=== PATIENT | female | born 1935 | race Caucasian/White ===

== ENCOUNTER → 2016-06-01 | Outpatient (CLI) | payer MEDICARE ==
--- NOTE | 2016-06-01 12:48 | BD ---
EXAMINATION TYPE: MG DEXA axial skeleton. DATE OF EXAM: 06/01/2016 10:39 AM COMPARISON: Previous exam 14 May 2014 CLINICAL HISTORY: post menopausal Height: 5'3 05/31 Weight: 154 FRAX RISK QUESTIONS: Alcohol (3 or more units per day): no Family History (Parent hip fracture): no Glucocorticoids (More than 3mos): no (Ex: prednisone, prednisolone, methylprednisolone, dexamethasone, and hydrocortisone). History of Fracture in Adulthood: no Secondary Osteoporosis: 1. Type 1 Diabetes: no 2. Hyperthyroidism: no 3. Menopause before 45: yes 4. Malnutrition: no 5. Chronic liver disease: no Rheumatoid Arthritis: no Current Tobacco Use: no RISK FACTORS HISTORY OF: Postmenopausal woman: Yes MEDICATIONS: Additional Medications: coumadin,cholsterol Additional History: history of blood clots EXAM MEASUREMENTS: Bone mineral densitometry was performed using the [employer] System. Bone mineral density as measured about the Lumbar spine is: ----- L1-L4(G/cm2): 1.111 T Score Values are as follows: ----- L2: -1.3 ----- L3: 0.4 ----- L4: 0.3 ----- L1-L4: -0.6 Bone mineral density has: Increased 8.1% since study of: 05/14/2014 Bone mineral density about the R hip (g/cm2): 0.735 Bone mineral density about the L hip (g/cm2): 0.766 T Score values are as follows: -----R Neck: -2.2 -----L Neck: -2.0 -----R Intertrochanter: -1.0 -----L Intertrochanter: -0.4 Bone mineral density has: Decreased -0.6% since study of: 05/14/2014 IMPRESSION: Osteopenia (T Score between -2.5 and -1 as noted by T score values :L2- Ender Hips There is slightly increased risk of fracture and the patient may be considered for treatment. Re-Screen 1-2 years. NOTE: T-SCORE=SD OF THE YOUNG ADULT MEAN.
--- NOTE | 2016-06-01 18:28 | WWHP ---
DATE OF DICTATION: 06/01/2016 CHIEF COMPLAINT: The patient is here for her routine gynecologic exam and mammogram. HISTORY OF PRESENT ILLNESS: This is an 81-year-old G3, P3 with an LMP of 1973 who is status post vaginal hysterectomy for benign reasons. She is without gynecologic complaints. PAST MEDICAL HISTORY: 1. Elevated cholesterol. 2. History of DVT. 3. Chronic hypertension. 4. Arthritis. 5. Diverticulosis. 6. History of osteopenia. She is status post 3 years use of Fosamax ending in 2012. MEDICATIONS: 1. Zocor 40 mg daily. 2. Coumadin 2.5 mg daily. 3. Aspirin 81 mg daily. 4. Melatonin p.r.n. 5. Multivitamin 1 daily. 6. Co- Q10 50 mg daily. 7. Probiotic daily. ALLERGIES: NO KNOWN DRUG ALLERGIES. PAST SURGICAL HISTORY: Unchanged from the 2014 H&P. SOCIAL HISTORY: She denies tobacco and drug use and has about 3 glasses of wine per week. She is a and is not seeing anybody at this time. 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 REVIEW OF SYSTEMS: Weight has been stable. She denies respiratory, cardiac or GI problems. She denies maltreatment or falling. : She denies problems with urinary incontinence but does get up one time per night to void. PHYSICAL EXAM: Blood pressure 167/77. Height 5 feet 5 inches. Weight 157 pounds. Temperature 97.0, pulse 68. This is a well-developed, well-nourished white female who is alert and oriented x3, in no acute distress. HEENT is within normal limits. NECK: Supple without mass or thyromegaly. CHEST AND LUNGS: Clear to auscultation. HEART: Regular rate and rhythm. Breasts are without mass or discharge. There is minimal left breast tenderness noted in the upper quadrants without palpable masses. There is no nipple discharge. Axillary exam is negative for adenopathy. BACK: Negative for CVA tenderness. ABDOMEN: Soft, nontender, without palpable masses. PELVIC EXAM: External genitalia reveal moderate atrophy without lesions. Vagina reveals moderate atrophy without lesions. There is no evidence of prolapse. Bimanual exam is negative for mass or tenderness. Rectovaginal exam is negative for mass or tenderness and is negative for occult blood. EXTREMITIES: Nontender. IMPRESSION: 1. Ltvkup-[id number]-[id number]-old menopausal female who is status post vaginal hysterectomy with normal gynecologic exam. 2. History of osteopenia. 3. Elevated blood pressure with history of chronic hypertension. PLAN: 1. Pap smears have been discontinued. 2. Self breast examination was discussed. 3. Mammogram will be done today. 4. Osteoporosis prevention was discussed. Bone density testing will be done today. 5. She did receive her flu shot this past fall. 6. She will do home blood pressure monitoring as she has done in the past and follow up with Dr. Torres regarding any blood pressure elevations. 7. She will return in one year.
--- NOTE | 2016-06-02 12:00 | MM ---
Reason for exam: screening (asymptomatic). Last mammogram was performed 1 year ago. History: Patient is postmenopausal. Family history of breast cancer in sister at age 73. Physical Findings: A clinical breast exam by your physician is recommended on an annual basis and results should be correlated with mammographic findings. MG 3D Screening Mammo W/Cad Bilateral CC and MLO view(s) were taken. Prior study comparison: May 20, 2015, bilateral MG 3d screening mammo w/cad. May 14, 2014, bilateral MG screening mammo w CAD. There are scattered fibroglandular densities. Finding: There is a 5 mm high density, oval mass in the central position of the left breast. There is a chronic nodularity in the left breast. ASSESSMENT: Incomplete: need additional imaging evaluation, BI-RAD 0 RECOMMENDATION: Special view mammogram of the left breast. If lesion persists on supplemental views, image directed ultrasound is recommended. [facility] will attempt to contact patient to return for supplemental views and ultrasound if indicated.
== END | disposition home or self-care (01) ==
LOC: WWCWWP 08:34
PROVIDERS: ATTEND Obstetrics & Gynecology
DX: Z12.31 Encounter for screening mammogram for malignant neoplasm of breast (principal); R92.8 Other abnormal and inconclusive findings on diagnostic imaging of breast; M85.88 Other specified disorders of bone density and structure, other site; Z78.0 Asymptomatic menopausal state
CPT/HCPCS: 77080; 77052; 77063; G0202

== ENCOUNTER → 2016-06-07 | Outpatient (CLI) | payer MEDICARE ==
--- NOTE | 2016-06-07 10:05 | MM ---
Reason for exam: additional evaluation requested from abnormal screening. Last mammogram was performed less than 1 month ago. History: Patient is postmenopausal. Family history of breast cancer in sister at age 73. Physical Findings: Nurse did not find any significant physical abnormalities on exam. MG 3D Work Up W/Cad LT LM and spot compression CC view(s) were taken of the left breast. Prior study comparison: June 01, 2016, bilateral MG 3d screening mammo w/cad. May 20, 2015, bilateral MG 3d screening mammo w/cad. Nodule persists. Ultrasound is recommended. These results were verbally communicated with the patient and result sheet given to the patient on 06/07/16. ASSESSMENT: Incomplete: need additional imaging evaluation, BI-RAD 0 RECOMMENDATION: Ultrasound of the left breast.
--- NOTE | 2016-06-07 10:07 | USB ---
Reason for exam: additional evaluation requested from abnormal screening. History: Patient is postmenopausal. Family history of breast cancer in sister at age 73. US Breast Workup Limited LT Left breast ultrasound demonstrates no cystic or solid lesion seen. These results were verbally communicated with the patient and result sheet given to the patient on 06/07/16. ASSESSMENT: Incomplete: need additional imaging evaluation, BI-RAD 0 RECOMMENDATION: Breast MRI of the left breast.
== END | disposition home or self-care (01) ==
LOC: RADMAMWWP 08:50
PROVIDERS: ATTEND Obstetrics & Gynecology
DX: R92.2 Inconclusive mammogram (principal)
CPT/HCPCS: 77051; 76642; G0206; G0279

== ENCOUNTER → 2016-06-16 | Outpatient (CLI) | payer MEDICARE | END | disposition home or self-care (01) | LOC: LABWHC1 10:49 | PROVIDERS: ATTEND Obstetrics & Gynecology | DX: R92.8 Other abnormal and inconclusive findings on diagnostic imaging of breast (principal) | CPT/HCPCS: 36415; 82565 ==

== ENCOUNTER → 2016-06-21 | Outpatient (CLI) | payer MEDICARE ==
--- NOTE | 2016-06-23 14:33 | BMR ---
EXAMINATION TYPE: MR breast BILAT wo/w con DATE OF EXAM: 06/21/2016 11:37 AM COMPARISON: Ultrasound 06/07/2016 and mammography 06/07/2016 HISTORY: abn mammo TECHNIQUE: A series of fat and water weighted images in the long and short axis views of both breasts are obtained in conjunction with dynamic contrast MRI with subtraction technique. The patient was i njected with 15 mL intravenous MultiHance gadolinium contrast. Three-dimensional and additional pos tprocessing imaging is created on independent workstation and reviewed during official interpretation of this study. REFERENCE: Reference FINDINGS: Right breast: No suspicious enhancing solid mass. No evidence for skin thickening or distortion. One or 2 tiny cysts identified. No evidence for axillary adenopathy. Left breast: No suspicious enhancing solid mass. No evidence for skin thickening or distortion. One or 2 tiny cysts identified. No evidence for axillary adenopathy. IMPRESSION: 1. Right breast: Benign BI-RADS 2. 2. left breast: Probably benign BI-RADS 3 Recommendation: 1. Right breast: Annual mammography advised. 2. Precautionary six-month follow-up mammography of the left breast preferably with 3-D imaging.
== END | disposition home or self-care (01) ==
LOC: RADMRIMAIN 09:48
PROVIDERS: ATTEND Obstetrics & Gynecology
DX: R92.8 Other abnormal and inconclusive findings on diagnostic imaging of breast (principal)
CPT/HCPCS: 0159T; C8908; A9577; 77059

== ENCOUNTER → 2016-12-06 | Outpatient (CLI) | payer MEDICARE ==
--- NOTE | 2016-12-06 09:56 | MM ---
Reason for exam: follow-up at short interval from prior study. Last mammogram was performed 6 months ago. History: Patient is postmenopausal. Family history of breast cancer in sister at age 73. Physical Findings: Nurse did not find any significant physical abnormalities on exam. MG 3D Diag Mammo W/Cad LT CC and MLO view(s) were taken of the left breast. Prior study comparison: June 21, 2016, bilateral MR breast bilat wo/w con. June 07, 2016, left breast MG 3d work up w/cad LT. June 07, 2016, left breast US breast workup limited LT. May 20, 2015, bilateral MG 3d screening mammo w/cad. May 08, 2013, bilateral digital screening mammo w/CAD. There are scattered fibroglandular densities. Stable lateral intramammary lymph node. The previous central nodule has resolved. A cyst is suspected now decreased in size/resolved. These results were verbally communicated with the patient and result sheet given to the patient on 12/06/16. ASSESSMENT: Negative, BI-RAD 1 RECOMMENDATION: Follow-up diagnostic mammogram of both breasts in 6 months. Back on schedule May 2017.
== END | disposition home or self-care (01) ==
LOC: RADMAMWWP 08:34
PROVIDERS: ATTEND Obstetrics & Gynecology
DX: R92.8 Other abnormal and inconclusive findings on diagnostic imaging of breast (principal)
CPT/HCPCS: G0206; G0279

== ENCOUNTER → 2017-06-15 | Outpatient (CLI) | payer MEDICARE ==
--- NOTE | 2017-06-15 10:10 | WWHP ---
[facility] - HISTORY AND PHYSICAL DATE OF DICTATION: 06/15/2017. CHIEF COMPLAINT: The patient is here for her routine gynecologic exam and mammogram. HPI: This is an 82-year-old, G3, P3 with an LMP of 1972. She is status post vaginal hysterectomy for benign reasons. The patient is without gynecologic complaints. She did have an abnormal mammogram which required a 6-month followup. Diagnostic mammogram of both breasts is now recommended this month. PAST MEDICAL HISTORY: Elevated cholesterol, history of DVT, chronic hypertension, arthritis, diverticulosis, and history of osteopenia. She is status post Fosamax use for 3 years ending in 2012. MEDICATIONS: 1. Zocor 40 mg daily. 2. Coumadin 2.5 mg daily. 3. Woman's multivitamin daily. 4. Co-Q10 fifty mg daily. 5. Aspirin 81 mg daily. 6. Vitamin D3 one thousand units daily. ALLERGIES: No known drug allergies. PAST SURGICAL HISTORY: Right knee replacement, left knee replacement, colon resection for diverticulitis in the past. Vaginal hysterectomy in 1972, colonoscopy in 2012. FAMILY HISTORY: Son has gout. Sister had breast cancer. Father had Crohn's disease. 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 She has no history of STDs. SOCIAL HISTORY: She denies tobacco and drug use and has approximately 3 to 4 glasses of wine per week. She is a and is not seeing anybody at this time. She is expecting her first great grandchild later this year. REVIEW OF SYSTEMS: Weight has been stable. She denies respiratory or cardiac problems. GI occasional acid reflux with certain foods. She denies maltreatment or falling. : She does occasionally urinate more often and sometimes has to get to the bathroom right away and she typically gets up 1 time per night to void. PHYSICAL EXAM: Blood pressure 160/84, height 5 feet 5 inches, weight 156 pounds. BMI 26. Temperature 97.6, pulse 76. This is a well-developed, well-nourished white female who is alert and oriented x3, in no acute distress. HEENT is within normal limits. NECK: Supple without mass or thyromegaly. CHEST AND LUNGS: Clear to auscultation. HEART: Regular rate and rhythm. Breasts are without mass or discharge. The patient states she has had mild tenderness at the lateral aspect of the left breast recently. Axillary exam is negative for adenopathy. Back negative for CVA tenderness. ABDOMEN: Soft, nontender, without palpable masses. PELVIC EXAM: External genitalia reveals moderate atrophy without lesions. Vagina reveals moderate atrophy without lesions. There is no evidence of prolapse. Bimanual exam is negative for mass or tenderness. Rectovaginal exam is negative for mass or tenderness and is negative for occult blood EXTREMITIES: Nontender. IMPRESSION: 1. An 82-year-old menopausal female who is status post vaginal hysterectomy for benign reasons with normal gynecologic exam. 2. History of osteopenia, status post 3 years use of Fosamax in the past. 3. Elevated blood pressure. PLAN: 1. Pap smears have been discontinued. 2. Self breast examination was discussed. 3. Diagnostic mammogram will be done today. 4. We have discussed her elevated blood pressure. I have stressed the importance of following up with Dr. Torres for this. She will also check her blood pressures daily at various times during the day and give her blood pressure readings to Dr. Torres. 5. Osteoporosis prevention was discussed. We will plan on repeating the bone density test in 1 year. 6. She did get a flu shot this past fall. 7. She will return in 1 year. MMODL / IJN: [id number] /
--- NOTE | 2017-06-15 10:30 | MM ---
Reason for exam: follow-up at short interval from prior study. Last mammogram was performed 6 months ago. History: Patient is postmenopausal. Family history of breast cancer in sister at age 73. Physical Findings: Dr. Gamboa did not find any significant physical abnormalities on exam. MG 3D Diag Mammo W/Cad [facility] Bilateral CC and MLO view(s) were taken. Prior study comparison: December 06, 2016, left breast MG 3d diag mammo w/cad LT. June 07, 2016, left breast MG 3d work up w/cad LT. The breast tissue is heterogeneously dense. This may lower the sensitivity of mammography. No suspicious abnormality. These results were verbally communicated with the patient and result sheet given to the patient on 06/15/17. ASSESSMENT: Negative, BI-RAD 1 RECOMMENDATION: Routine screening mammogram of both breasts in 1 year. Manage on a clinical basis with regard to left breast tenderness.
== END | disposition home or self-care (01) ==
LOC: WWCWWP 08:16
PROVIDERS: ATTEND Obstetrics & Gynecology
DX: R92.8 Other abnormal and inconclusive findings on diagnostic imaging of breast (principal)
CPT/HCPCS: 77066; G0279

== ENCOUNTER → 2018-05-15 | Outpatient (CLI) | payer MEDICARE ==
--- NOTE | 2018-05-15 10:53 | US ---
EXAMINATION TYPE: US venous doppler duplex LE RT DATE OF EXAM: 05/15/2018 10:27 AM COMPARISON: NONE CLINICAL HISTORY: 82-year-old female R22.41 Swelling rt lower limb. Right leg edema. Patient on Couma din SIDE PERFORMED: Right TECHNIQUE: The lower extremity deep venous system is examined utilizing real time linear array sonog olga with graded compression, doppler sonography and color-flow sonography. FINDINGS: VESSELS IMAGED: External Iliac Vein (EIV) Common Femoral Vein Deep Femoral Vein Greater Saphenous Vein * Femoral Vein Popliteal Vein Small Saphenous Vein * Proximal Calf Veins (* superficial vessels) Right Leg: No evidence of DVT as visualized IMPRESSION: No evidence for DVT within the right lower extremity imaged from the groin to the upper calf.
== END | disposition home or self-care (01) ==
LOC: RADUSWWP 10:01
PROVIDERS: ATTEND Internal Medicine
DX: R22.41 Localized swelling, mass and lump, right lower limb (principal)

== ENCOUNTER → 2018-05-25 | Outpatient (CLI) | payer MEDICARE ==
--- NOTE | 2018-05-25 13:38 | MR ---
EXAMINATION TYPE: MR lumbar spine wo con DATE OF EXAM: 05/25/2018 12:48 PM COMPARISON: NONE HISTORY: Low back pain Multiplanar, MultiSpin echo imaging of the lumbar spine was performed. L1-L2: Normal disc appearance without desiccation. No herniation, protrusion or disc bulging. No ca nal stenosis is present. Foramina are patent bilaterally. L2-L3: Moderate disc desiccation. Circumferential disc bulge greatest posteriorly with mild effacemen t ventral thecal sac. Constriction of the thecal sac without overt stenosis. Facet joint arthropathy resulting in bilateral foraminal encroachment. L3-L4: Moderate disc desiccation. Circumferential disc bulge greatest posteriorly with mild effacemen t ventral thecal sac. Constriction of the thecal sac without overt stenosis. Facet joint arthropathy resulting in bilateral foraminal encroachment. L4-L5: Severe disc desiccation. Circumferential disc bulge greatest posteriorly. Hypertrophy of the l igamentum flavum and facet joint arthropathy without overt stenosis. Bilateral foraminal encroachment . Grade 1 anterolisthesis L4 and L5 of 2 mm. L5-S1: Severe disc desiccation. Posterior disc bulge without herniation or central stenosis. Mild aure ateral foraminal encroachment. Lumbar scoliotic curvature convex to the right. Lumbar segments are intact. No paraspinal masses are identified. Conus medullaris has a normal appearance. Scattered degenerative endplate marrow change . Mild ventral spondylosis. IMPRESSION: 1. Multilevel degenerative disc disease as discussed above.
== END | disposition home or self-care (01) ==
LOC: RADMRIMAIN 12:19
PROVIDERS: ATTEND Internal Medicine
DX: M51.36 Other intervertebral disc degeneration, lumbar region (principal)
CPT/HCPCS: 72148

== ENCOUNTER → 2018-08-14 | Outpatient (CLI) | payer MEDICARE ==
--- NOTE | 2018-08-14 17:25 | BD ---
EXAMINATION TYPE: Axial Bone Density DATE OF EXAM: 08/14/2018 COMPARISON: 06/01/2016 CLINICAL HISTORY: 83-year-old female disorder bone Height: 62.5 IN Weight: 152 LBS FRAX RISK QUESTIONS: History of Fracture in Adulthood: Secondary Osteoporosis: RISK FACTORS HISTORY OF: Active: MODERATE Postmenopausal woman: AGE 48 Lost more than 2 inches in height since high school: YES 2" MEDICATIONS: Additional Medications: VIT D3, COUMADIN,ZOCOR EXAM MEASUREMENTS: Bone mineral densitometry was performed using the [employer] System. Bone mineral density as measured about the Lumbar spine is: ----- L1-L4(G/cm2): 1.100 T Score Values are as follows: ----- L2: -1.4 ----- L3: 0.1 ----- L4: 0.2 ----- L1-L4: 0.7 Bone mineral density has: DECREASED -1.6% since study of: 06/01/2016 Bone mineral density about the R hip (g/cm2): 0.758 Bone mineral density about the L hip (g/cm2): 0.762 T Score values are as follows: -----R Neck: -2.0 -----L Neck: -2.0 -----R Total: -1.1 -----L Total: -1.1 Bone mineral density has: INCREASED 0.9% since study of: 06/01/2016 IMPRESSION: Osteopenia (T Score between -2.5 and -1). There is slightly increased risk of fracture and the patient may be considered for treatment. Re-Screen 2-5 years. NOTE: T-SCORE=SD OF THE YOUNG ADULT MEAN.
--- NOTE | 2018-08-15 09:31 | MM ---
Reason for exam: screening (asymptomatic). Last mammogram was performed 1 year and 2 months ago. History: Patient is postmenopausal. Family history of breast cancer in sister at age 73. Physical Findings: A clinical breast exam by your physician is recommended on an annual basis and results should be correlated with mammographic findings. MG 3D Screening Mammo W/Cad Bilateral CC and MLO view(s) were taken. Prior study comparison: June 15, 2017, bilateral MG 3d diag mammo w/cad [facility]. December 06, 2016, left breast MG 3d diag mammo w/cad LT. The breast tissue is heterogeneously dense. This may lower the sensitivity of mammography. No suspicious abnormality on the left. Right upper outer quadrant middle depth focal asymmetry. ASSESSMENT: Incomplete: need additional imaging evaluation, BI-RAD 0 RECOMMENDATION: Special view mammogram of the right breast. If lesion persists on supplemental views, image directed ultrasound is recommended. [facility] will attempt to contact patient to return for supplemental views and ultrasound if indicated.
== END | disposition home or self-care (01) ==
LOC: RADMAMWWP 09:51
PROVIDERS: ATTEND Internal Medicine
DX: Z12.31 Encounter for screening mammogram for malignant neoplasm of breast (principal); M85.88 Other specified disorders of bone density and structure, other site
CPT/HCPCS: 77063; 77067; 77080

== ENCOUNTER → 2018-09-05 | Outpatient (CLI) | payer MEDICARE ==
--- NOTE | 2018-09-05 11:31 | MM ---
Reason for exam: additional evaluation requested from abnormal screening. Last mammogram was performed 1 month ago. History: Patient is postmenopausal. Family history of breast cancer in sister at age 73. Physical Findings: Nurse did not find any significant physical abnormalities on exam. MG 3D Work Up W/Cad RT Spot compression CC, spot compression MLO, and ML view(s) were taken of the right breast. Prior study comparison: August 14, 2018, bilateral MG 3d screening mammo w/cad. June 15, 2017, bilateral MG 3d diag mammo w/cad [facility]. Nodular density is less conspicuous. Ultrasound is recommended upper outer quadrant 5cm from nipple. These results were verbally communicated with the patient and result sheet given to the patient on 09/05/18. ASSESSMENT: Incomplete: need additional imaging evaluation, BI-RAD 0 RECOMMENDATION: Ultrasound of the right breast.
--- NOTE | 2018-09-05 11:33 | USB ---
Reason for exam: additional evaluation requested from abnormal screening. History: Patient is postmenopausal. Family history of breast cancer in sister at age 73. US Breast Workup Limited RT Right limited breast ultrasound including focal area of concern, retroareolar and axilla demonstrates a 5 x 2 x 6mm oval, cystic lesion at 10 o'clock. These results were verbally communicated with the patient and result sheet given to the patient on 09/05/18. ASSESSMENT: Benign, BI-RAD 2 RECOMMENDATION: Return to routine screening mammogram schedule for both breasts.
== END | disposition home or self-care (01) ==
LOC: RADMAMWWP 10:05
PROVIDERS: ATTEND Internal Medicine
DX: R92.8 Other abnormal and inconclusive findings on diagnostic imaging of breast (principal)
CPT/HCPCS: 77065; 76642; G0279; 77061

== ENCOUNTER → 2020-08-25 | Outpatient (CLI) | payer MEDICARE ==
--- NOTE | 2020-08-28 11:21 | MM ---
Reason for exam: screening (asymptomatic). Last mammogram was performed 2 years ago. History: Patient is postmenopausal. Family history of breast cancer in sister at age 73. Physical Findings: A clinical breast exam by your physician is recommended on an annual basis and results should be correlated with mammographic findings. MG 3D Screening Mammo W/Cad Bilateral CC and MLO view(s) were taken. Prior study comparison: September 05, 2018, right breast MG 3d work up w/cad RT. August 14, 2018, bilateral MG 3d screening mammo w/cad. The breast tissue is heterogeneously dense. This may lower the sensitivity of mammography. There is chronic nodularity bilaterally. No significant changes when compared with prior studies. ASSESSMENT: Benign, BI-RAD 2 RECOMMENDATION: Routine screening mammogram of both breasts in 1 year.
== END ==
LOC: RADMAMWWP 10:36
PROVIDERS: ATTEND Internal Medicine
DX: Z12.31 Encounter for screening mammogram for malignant neoplasm of breast (principal)
CPT/HCPCS: 77063; 77067

== ENCOUNTER → 2020-11-17 | Outpatient (CLI) | payer MEDICARE ==
--- NOTE | 2020-11-18 08:01 | ECHOF ---
Referral Reason:I87.2 venous insufficiency MEASUREMENTS -------- HEIGHT: 162.6 cm WEIGHT: 63.5 kg BP: IVSd: 1.2 cm (0.6 - 1.1) LVIDd: 4.2 cm (3.9 - 5.3) LVPWd: 1.2 cm (0.6 - 1.1) IVSs: 1.5 cm LVIDs: 2.5 cm LVPWs: 1.3 cm LAESV Index (A-L): 31.52 ml/m Ao Diam: 3.2 cm (2.0 - 3.7) AV Cusp: 1.4 cm (1.5 - 2.6) MV EXCURSION: 16.659 mm (> 18.000) MV EF SLOPE: 47 mm/s (70 - 150) EPSS: 0.3 cm MV E Jc: 0.50 m/s MV DecT: 233 ms MV A Jc: 0.76 m/s MV E/A Ratio: 0.66 RAP: 5.00 mmHg RVSP: 17.37 mmHg FINDINGS -------- Sinus rhythm. This was a technically good study. LV size, wall thickness and systolic function are normal, with an EF greater than 55%. The left jannie tricular size is normal. There is increased LV septal thickness with increased color flow of the L VOT however no significant LVOT gradient noted. The right ventricle is normal in size. LA is midly dilated 29-33ml/m2. The right atrial size is normal. There is mild aortic valve sclerosis. There is no evidence of aortic regurgitation. Mild mitral annular calcification present. Mild mitral regurgitation is present. Mild tricuspid regurgitation present. Right ventricular systolic pressure is normal at < 35 mmHg. There is no pulmonic regurgitation present. The aortic root size is normal. There is no pericardial effusion. CONCLUSIONS -------- 1. LV size, wall thickness and systolic function are normal, with an EF greater than 55%. 2. The left ventricular size is normal. 3. There is increased LV septal thickness with increased color flow of the LVOT however no significan t LVOT gradient noted. 4. The right ventricle is normal in size. 5. LA is midly dilated 29-33ml/m2. 6. The right atrial size is normal. 7. There is mild aortic valve sclerosis. 8. Mild mitral annular calcification present. 9. Mild mitral regurgitation is present. 10. Mild tricuspid regurgitation present. 11. There is no pulmonic regurgitation present. 12. The aortic root size is normal. 13. There is no pericardial effusion. DIESEL PILE DRIVER OPERATOR: Jeanine Negrete RDCS
== END | disposition home or self-care (01) ==
LOC: RADECHMAIN 11:53
PROVIDERS: ATTEND Internal Medicine
DX: I08.3 Combined rheumatic disorders of mitral, aortic and tricuspid valves (principal)
CPT/HCPCS: 93306

== ENCOUNTER 2021-07-17 14:35 | Emergency (ER) | payer MEDICARE ==
[2021-07-17 16:00] LABS: Basophils % (A) 0 %; Eosinophils % (A) 0 %; HCT 47.1 % (34.0-46.0); HGB 15.6 gm/dL (11.4-16.0); Lymphocytes # (A) 1.4 k/uL (1.0-4.8); Lymphocytes % (A) 14 %; MCH 29.2 pg (25.0-35.0); MCHC 33.2 g/dL (31.0-37.0); Mean Platelet Volume 7.3; Monocytes # (A) 0.5 k/uL (0-1.0); Monocytes % (A) 5 %; Neutrophils # (A) 8.5 k/uL (1.3-7.7); Neutrophils % (A) 80 %; Platelet Count 352 k/uL (150-450); RBC 5.36 m/uL (3.80-5.40); RDW 13.5 % (11.5-15.5); WBC 10.6 k/uL (3.8-10.6)
[2021-07-17 16:08] LABS: Albumin 4.2 g/dL (3.5-5.0); Calcium 9.9 mg/dL (8.4-10.2); Magnesium 2.2 mg/dL (1.6-2.3); Potassium 3.8 mmol/L (3.5-5.1); Total Bilirubin 0.7 mg/dL (0.2-1.3); Total Protein 7.1 g/dL (6.3-8.2)
--- NOTE | 2021-07-17 16:22 | ED ---
General Adult HPI - General Chief complaint: Recheck/Abnormal Lab/Rx Stated complaint: Irregular labs-Sent by Dr. 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 She was told by her physician to come to the emergency department for computed tomography scan of the brain as well as repeat laboratory studies as her INR is elevated. She denies any headache, but does endorse some sinus pressure over the right side of her face. Denies any blurry vision, weakness, numbness. Denies any chest pain, shortness breath, abdominal pain. Denies any lightheadedness, nausea, vomiting, diarrhea. Has no other acute complaint this time. Presents for further evaluation. She lives alone, and has not changed her Coumadin dosing. Labs done earlier this week showed INR was somewhere in the 7s.Denies any falls or head trauma.. Does have a history of UTIs.Patient denies any bleeding, denying hematemesis, hemoptysis, hematochezia or melena. - Related Data Home Medications Medication Instructions Recorded Confirmed Ascorbic Acid [Vitamin C] 1,000 mg PO DAILY 07/17/21 07/17/21 Multivit-Min/Iron/Folic/Lutein 1 tab PO DAILY 07/17/21 07/17/21 [Centrum Silver Women Tablet] Simvastatin 40 mg PO DAILY 07/17/21 07/17/21 Warfarin [Coumadin] 5 - 7.5 mg PO DIRECTED 07/17/21 07/17/21 Previous Rx's Medication Instructions Recorded Sulfamethoxazole/Trimethoprim 1 each PO BID 5 Days #10 tablet 07/17/21 [Bactrim DS 800-160 mg] Allergies Allergy/AdvReac Type Severity Reaction Status Date / Time No Known Allergies Allergy Verified 07/17/21 16:39 Review of Systems ROS Statement: Those systems with pertinent positive or pertinent negative responses have been documented in the HPI. Review of Systems: CONST: Denies fever EYES: Denies blurry vision ENT: Denies nasal congestion C/V: Denies Chest pain RESP: Denies shortness of breath GI: Denies abdominal pain : Denies dysuria SKIN: Denies rash. MSK: Denies joint pain. NEURO: Denies headache ROS Other: All systems not noted in ROS Statement are negative. Past Medical History Past Medical History: Deep Vein Thrombosis (DVT) History of Any Multi-Drug Resistant Organisms: None Reported Past Surgical History: Hysterectomy, Orthopedic Surgery Past Psychological History: No Psychological Hx Reported Smoking Status: Never smoker Past Alcohol Use History: Occasional Past Drug Use History: None Reported General Exam - General Exam Comments Initial Comments: General: Appears in no acute distress. HEAD: Normal with no signs of head trauma. EYES: PERRLA, EOMI, conjunctiva normal, no discharge. Pupils are 3 mm and equal bilaterally. ENT: Hearing grossly intact, normal oropharynx. RESPIRATORY: Clear breath sounds bilaterally. No wheezes, rales, or rhonchi. C/V: Regular rate and rhythm. S1 and S2 auscultated, no edema, peripheral pulses 2+ and intact throughout ABD: Abd is soft, nontender, nondistended EXT: Normal range of motion, no obvious deformity SKIN: No rashes or lesions observed on exposed skin. NEURO: Alert and oriented x 4. Cranial nerves II-XII intact. No focal sensory or strength deficits. Cerebellar function is intact as evident by normal finger nose testing. Patient can ambulate without difficulty. NIH is 0. GCS is 15. Limitations: no limitations Course Vital Signs 07/17/21 07/17/21 14:41 18:24 Temperature 97.0 F L 97.8 F Pulse Rate 71 78 Respiratory 20 18 Rate Blood Pressure 164/92 124/69 O2 Sat by Pulse 95 98 Oximetry Medical Decision Making - Medical Decision Making Based on the patient's presentation and physical exam, I'm concerned for elevated INR. CT brain will be obtained at the PCPs request. We will also recheck her INR and basic labs. Exam is unremarkable. She was in agreement this plan. Chest x-ray revealed no acute cardiopulmonary process. Plain CT revealed no acute intracranial process. Laboratory studies are remarkable for a supratherapeutic INR 6.3. Otherwise labs are unremarkable except for what looks to be a UTI on urinalysis. On reevaluation, I did discuss with the patient that because she is not bleeding, she does not require vitamin K administration. Due to her age and living by herself, did recommend that she be admitted overnight for further monitoring and repeat INR testing in the morning. However patient sounded present the department and stated that she will stay with her mother. I did recommend close follow-up with her physician next week as well as repeat INR testing. I instructed her to stop taking Coumadin intuitively green vegetables until then. She was in agreement this plan. She would prefer to go home. I believe this is reasonable. Patient will be given a prescription for Bactrim for her UTI. I instructed the patient to follow up with their PCP in the next 3 days. I explained that the patient should return to the emergency department if they experience any worsening symptoms. Strict return precautions were discussed with the patient. The patient expressed understanding of these instructions. I answered all questions that the patient had. The patient was discharged home in good co ndition with their prescriptions and follow up information. - Lab Data Result diagrams: 07/17/21 15:48 07/17/21 15:48 Lab Results 07/17/21 07/17/21 07/17/21 Range/Units 15:48 15:48 15:48 WBC 10.6 (3.8-10.6) k/uL RBC 5.36 (3.80-5.40) m/uL Hgb 15.6 (11.4-16.0) gm/dL Hct 47.1 H (34.0-46.0) % MCV 88.0 (80.0-100.0) fL MCH 29.2 (25.0-35.0) pg MCHC 33.2 (31.0-37.0) g/dL RDW 13.5 (11.5-15.5) % Plt Count 352 (150-450) k/uL MPV 7.3 Neutrophils % 80 % Lymphocytes % 14 % Monocytes % 5 % Eosinophils % 0 % Basophils % 0 % Neutrophils # 8.5 H (1.3-7.7) k/uL Lymphocytes # 1.4 (1.0-4.8) k/uL Monocytes # 0.5 (0-1.0) k/uL Eosinophils # 0.0 (0-0.7) k/uL Basophils # 0.0 (0-0.2) k/uL PT 63.6 H (9.0-12.0) sec INR 6.3 H* (<1.2) APTT 44.7 H (22.0-30.0) sec Sodium 137 (137-145) mmol/L Potassium 3.8 (3.5-5.1) mmol/L Chloride 102 (98-107) mmol/L Carbon Dioxide 25 (22-30) mmol/L Anion Gap 10 mmol/L BUN 24 H (7-17) mg/dL Creatinine 1.09 H (0.52-1.04) mg/dL Est GFR (CKD-EPI)AfAm 53 (>60 ml/min/1.73 sqM) Est GFR (CKD-EPI)NonAf 46 (>60 ml/min/1.73 sqM) Glucose 101 H (74-99) mg/dL Plasma Lactic Acid Arcadio (0.7-2.0) mmol/L Calcium 9.9 (8.4-10.2) mg/dL Magnesium 2.2 (1.6-2.3) mg/dL Total Bilirubin 0.7 (0.2-1.3) mg/dL AST 27 (14-36) U/L ALT 29 (4-34) U/L Alkaline Phosphatase 79 (38-126) U/L Total Protein 7.1 (6.3-8.2) g/dL Albumin 4.2 (3.5-5.0) g/dL Urine Color Urine Appearance (Clear) Urine pH (5.0-8.0) Ur Specific Sanford (1.001-1.035) Urine Protein (Negative) Urine Glucose (UA) (Negative) Urine Ketones (Negative) Urine Blood (Negative) Urine Nitrite (Negative) Urine Bilirubin (Negative) Urine Urobilinogen (<2.0) mg/dL Ur Leukocyte Esterase (Negative) Urine RBC (0-5) /hpf Urine WBC (0-5) /hpf Ur Squamous Epith Cells (0-4) /hpf Hyaline Casts (0-2) /lpf Urine Mucus (None) /hpf 07/17/21 07/17/21 Range/Units 15:48 17:19 WBC (3.8-10.6) k/uL RBC (3.80-5.40) m/uL Hgb (11.4-16.0) gm/dL Hct (34.0-46.0) % MCV (80.0-100.0) fL MCH (25.0-35.0) pg MCHC (31.0-37.0) g/dL RDW (11.5-15.5) % Plt Count (150-450) k/uL MPV Neutrophils % % Lymphocytes % % Monocytes % % Eosinophils % % Basophils % % Neutrophils # (1.3-7.7) k/uL Lymphocytes # (1.0-4.8) k/uL Monocytes # (0-1.0) k/uL Eosinophils # (0-0.7) k/uL Basophils # (0-0.2) k/uL PT (9.0-12.0) sec INR (<1.2) APTT (22.0-30.0) sec Sodium (137-145) mmol/L Potassium (3.5-5.1) mmol/L Chloride (98-107) mmol/L Carbon Dioxide (22-30) mmol/L Anion Gap mmol/L BUN (7-17) mg/dL Creatinine (0.52-1.04) mg/dL Est GFR (CKD-EPI)AfAm (>60 ml/min/1.73 sqM) Est GFR (CKD-EPI)NonAf (>60 ml/min/1.73 sqM) Glucose (74-99) mg/dL Plasma Lactic Acid Arcadio 1.0 (0.7-2.0) mmol/L Calcium (8.4-10.2) mg/dL Magnesium (1.6-2.3) mg/dL Total Bilirubin (0.2-1.3) mg/dL AST (14-36) U/L ALT (4-34) U/L Alkaline Phosphatase (38-126) U/L Total Protein (6.3-8.2) g/dL Albumin (3.5-5.0) g/dL Urine Color Yellow Urine Appearance Cloudy H (Clear) Urine pH 5.5 (5.0-8.0) Ur Specific Sanford 1.014 (1.001-1.035) Urine Protein Negative (Negative) Urine Glucose (UA) Negative (Negative) Urine Ketones Negative (Negative) Urine Blood Negative (Negative) Urine Nitrite Negative (Negative) Urine Bilirubin Negative (Negative) Urine Urobilinogen <2.0 (<2.0) mg/dL Ur Leukocyte Esterase Large H (Negative) Urine RBC 11 H (0-5) /hpf Urine WBC 29 H (0-5) /hpf Ur Squamous Epith Cells 2 (0-4) /hpf Hyaline Casts 1 (0-2) /lpf Urine Mucus Few H (None) /hpf Disposition Clinical Impression: Elevated INR, UTI (urinary tract infection) Disposition: HOME SELF-CARE Condition: Good Instructions (If sedation given, give patient instructions): Elevated INR (ED) Additional Instructions: Hold all coumadin consumption until follow up INR and labs with Dr. Irwin next week. Avoid leafy green vegetables. Prescriptions: Sulfamethoxazole/Trimethoprim [Bactrim DS 800-160 mg] 1 each PO BID 5 Days #10 tablet Is patient prescribed a controlled substance at d/c from ED?: No Referrals: Fili Irwin MD [Primary Care Provider] - 1-2 days
[2021-07-17 16:34] LABS: Partial Thromboplastin Time 44.7 sec (22.0-30.0); Prothrombin Time 63.6 sec (9.0-12.0)
[2021-07-17 16:37] LABS: INR 6.3 (<1.2)
--- NOTE | 2021-07-17 16:43 | XR ---
EXAMINATION TYPE: XR chest 1V portable DATE OF EXAM: 07/17/2021 COMPARISON: X-ray dated 09/18/2013 HISTORY: AMS TECHNIQUE: Single frontal view of the chest is obtained. FINDINGS: Triangular opacity at the medial aspect of the right upper lung zone, also appreciated in 2014 x-ray. Grossly unremarkable lungs otherwise. No sizable pleural effusion or definite pneumothorax. No cardi omegaly. Aortic atherosclerotic calcifications. Dextroscoliosis of the thoracolumbar junction. IMPRESSION: No definite acute abnormality identified.
--- NOTE | 2021-07-17 17:11 | CT ---
EXAMINATION TYPE: CT brain wo con DATE OF EXAM: 07/17/2021 COMPARISON: None HISTORY: Altered mental status, Irregular labs, sent by PCP CT DLP: 1055.4 mGycm Automated exposure control for dose reduction was used. There is cerebral cortical atrophy. There are some hypodensity in the periventricular white matter an d more noticeable in the right parietal lobe. There is no mass effect or midline shift. There is no e vidence of intracranial hemorrhage. Calvarium is intact. Skull base is intact. IMPRESSION: Cerebral atrophy. Mild hydrocephalus. 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
[2021-07-17 17:38] LABS: Appearance,Urine Cloudy (Clear); Bilirubin,Urine Negative (Negative); Blood,Urine Negative (Negative); Color,Urine Yellow; Glucose,Urine (UA) Negative (Negative); Hyaline Casts,Urine 1 /lpf (0-2); Ketones,Urine Negative (Negative); Leukocyte Esterase,Urine Large (Negative); Mucus,Urine Few /hpf; Nitrite,Urine Negative (Negative); PH, Urine 5.5 (5.0-8.0); Protein,Urine Negative (Negative); RBC,Urine 11 /hpf (0-5); Specific Gravity,Urine 1.014 (1.001-1.035); Squamous Epithelial Cell,Urine 2 /hpf (0-4); Urobilinogen,Urine <2.0 mg/dL (<2.0); WBC,Urine 29 /hpf (0-5)
[2021-07-17] MEDS ORDERED: SULFAMETHOX-TMP 800-160MG 1 EACH TAB PO STA (17:55)
[2021-07-17 18:25] VITALS: BP 124/69; PULSE 78; RESP 18; TEMP 97.8
== END 2021-07-17 18:25 | disposition home or self-care (01) ==
LOC: EC 14:35
DX: R79.0 Abnormal level of blood mineral (principal); N39.0 Urinary tract infection, site not specified
CPT/HCPCS: 36415; 70450; 71045; 80053; 81001; 83605; 83735; 85025; 85610; 85730; 87086; 99284

== ENCOUNTER 2024-03-24 18:27 | Emergency (ER) | payer MEDICARE ==
--- NOTE | 2024-03-24 18:32 | ED ---
General Adult HPI - General Stated complaint: fall, head injury Time Seen by Provider: 03/24/24 18:31 Source: patient, RN notes reviewed, old records reviewed Limitations: no limitations - History of Present Illness Initial comments: 88-year-old female with mechanical fall, head injury. Patient tripped on concrete falling onto her right side with right parietal occipital hematoma. Patient is on Coumadin which she takes secondary to DVT. She denies loss consciousness. She is complaining of right shoulder pain, right hip pain and right thigh pain. Patient also complains of numbness tingling to the bilateral hands. - Related Data Home Medications Medication Instructions Recorded Confirmed Warfarin [Coumadin] 5 mg PO SUTUTHSA 07/17/21 03/24/24 Tobramycin/Dexamethasone [Tobradex 1 drop RIGHT EYE TID 03/24/24 03/24/24 Ophth Susp] Warfarin Sodium 6 mg PO MOWEFR 03/24/24 03/24/24 amLODIPine [Norvasc] 5 mg PO DAILY 03/24/24 03/24/24 Allergies Allergy/AdvReac Type Severity Reaction Status Date / Time No Known Allergies Allergy Verified 03/24/24 19:18 Review of Systems ROS Statement: Those systems with pertinent positive or pertinent negative responses have been documented in the HPI. ROS Other: All systems not noted in ROS Statement are negative. Past Medical History Past Medical History: Deep Vein Thrombosis (DVT) History of Any Multi-Drug Resistant Organisms: None Reported Past Surgical History: Hysterectomy, Orthopedic Surgery Past Psychological History: No Psychological Hx Reported Smoking Status: Never smoker Past Alcohol Use History: Occasional Past Drug Use History: None Reported General Exam General appearance: alert, in no apparent distress Head exam: Present: normocephalic. Absent: atraumatic (Parietal occipital hematoma on the right) Eye exam: Present: normal appearance, PERRL Neck exam: Present: other (C-collar placed by paramedics prior to arrival) Respiratory exam: Present: normal lung sounds bilaterally. Absent: respiratory distress, wheezes Cardiovascular Exam: Present: regular rate, normal rhythm GI/Abdominal exam: Present: soft. Absent: distended, tenderness Extremities exam: Present: other (Pain with range of motion of the right hip, pain with range from motion of the right shoulder. No gross deformity.) Neurological exam: Present: alert, oriented X3, CN II-XII intact, motor sensory deficit (Numbness to bilateral hands, strength preserved in the upper extremities, strength difficult to assess in the lower extremity secondary to pain) Skin exam: Present: warm, dry Course Vital Signs 03/24/24 18:36 Temperature 97.9 F Pulse Rate 73 Respiratory 20 Rate Blood Pressure 135/89 O2 Sat by Pulse 98 Oximetry Medical Decision Making - Medical Decision Making Was pt. sent in by a medical professional or institution (, [employer], urgent care, hospital, or shelter...) When possible be specific @ -No Did you speak to anyone other than the patient for history (EMS, parent, family, police, friend...)? What history was obtained from this source @Patient's son who is at bedside Did you review nursing and triage notes (agree or disagree)? Why? @ -I reviewed and agree with nursing and triage notes Were old charts reviewed (outside hosp., previous admission, EMS record, old EKG, old radiological studies, urgent care reports/EKG's, shelter records)? Report findings @ -No old charts were reviewed Differential Diagnosis: Intracranial hemorrhage, cervical fracture or subluxation, central cord syndrome, orthopedic injury status post fall EKG interpreted by me (3pts min.). @Tremor artifact limiting assessment, sinus rhythm with a rate of 68, normal MS interval, QRS duration 130, QTc [address] segment elevation X-rays interpreted by me (1pt min.). @X-rays of the chest and pelvis obtained, patient has right pubic rami fractures on single view pelvis CT interpreted by me (1pt min.). @ -CT brain shows a focus of blood within the ventricular system as well as some periventricular hemorrhage and significant degenerative change in the cervical spine. U/S interpreted by me (1pt. min.). @ -None done What testing was considered but not performed or refused? (CT, X-rays, U/S, labs)? Why? @ -None What meds were considered but not given or refused? Why? @ -None Did you discuss the management of the patient with other professionals (professionals i.e. , [employer] [employer], lab, RT, psych nurse, social media strategist, fire official, teacher, jailer/training officer, machine adjuster leader case trim)? Give summary @ -[Transfer center at [facility], accepting physician Dr. Larry Was smoking cessation discussed for >3mins.? @ -No Was critical care preformed (if so, how long)? @ -Yes, 35 minutes. Were there social determinants of health that impacted care today? How? (Homelessness, low income, unemployed, alcoholism, drug addiction, transporta tion, low edu. Level, literacy, decrease access to med. care, senior care, rehab)? @ -No Was there de-escalation of care discussed even if they declined (Discuss DNR or withdrawal of care, Hospice)? DNR status @ -No What co-morbidities impacted this encounter? (DM, HTN, Smoking, COPD, CAD, Cancer, CVA, ARF, Chemo, Hep., AIDS, mental health diagnosis, sleep apnea, morbid obesity)? @ -History of DVT on Coumadin Was patient admitted / discharged? Hospital course, mention meds given and route, prescriptions, significant lab abnormalities, going to OR and other pertinent info. @ -[h 88-year-old female with mechanical fall, head injury complaints of right shoulder pain, right hip pain, low back pain. Patient also complains of numbness in the bilateral hands. There is concern for cord injury as well as intracranial hemorrhage. Patient maintained in a cervical collar. Head CT does show a focus of intraventricular blood and periventricular hemorrhage. Patient's INR is 3.1 which is reversed with Kcentra and vitamin K. Pelvis x-ray does show pubic rami fracture on the right consistent with patient's pain. I do not see a displaced hip fracture. Patient will require transfer for higher level of care and neurosurgical evaluation. Transfer to [facility] Has excepted transfer. Undiagnosed new problem with uncertain prognosis? @ -No Drug Therapy requiring intensive monitoring for toxicity (Heparin, Nitro, Insulin, Cardizem)? @ -No Were any procedures done? @ -No Diagnosis/symptom? @Intracranial hemorrhage on Coumadin, concern for cervical spine injury. Pubic rami fracture Acute, or Chronic, or Acute on Chronic? @Acute Uncomplicated (without systemic symptoms) or Complicated (systemic symptoms)? @ -[Complicated Side effects of treatment? @ -No Exacerbation, Progression, or Severe Exacerbation? @ -No Poses a threat to life or bodily function? How? (Chest pain, [place], [place], pneumonia, PE, COPD, DKA, ARF, appy, cholecystitis, CVA, Diverticulitis, Homicidal, Suicidal, threat to staff... and all critical care pts) @ -Yes, intracranial hemorrhage, cervical spine injury. - Lab Data Result diagrams: 03/24/24 18:46 03/24/24 18:46 Lab Results 03/24/24 03/24/24 03/24/24 Range/Units 18:46 18:46 18:46 WBC 11.8 H (3.8-10.6) k/uL RBC 4.56 (3.80-5.40) m/uL Hgb 13.7 (11.4-16.0) gm/dL Hct 41.1 (34.0-46.0) % MCV 90.0 (80.0-100.0) fL MCH 30.0 (25.0-35.0) pg MCHC 33.3 (31.0-37.0) g/dL RDW 13.1 (11.5-15.5) % Plt Count 234 (150-450) k/uL MPV 7.6 Neutrophils % 84 % Lymphocytes % 9 % Monocytes % 4 % Eosinophils % 2 % Basophils % 0 % Neutrophils # 9.9 H (1.3-7.7) k/uL Lymphocytes # 1.1 (1.0-4.8) k/uL Monocytes # 0.5 (0-1.0) k/uL Eosinophils # 0.2 (0-0.7) k/uL Basophils # 0.0 (0-0.2) k/uL PT 30.0 H (10.0-12.5) sec INR 3.1 H (<1.2) APTT 29.6 (22.0-30.0) sec Sodium 134 L (137-145) mmol/L Potassium 5.5 H (3.5-5.1) mmol/L Chloride 108 H (98-107) mmol/L Carbon Dioxide 21 L (22-30) mmol/L Anion Gap 5 mmol/L BUN 39 H (7-17) mg/dL Creatinine 0.98 (0.52-1.04) mg/dL Est GFR (CKD-EPI)AfAm 59 (>60 ml/min/1.73 sqM) Est GFR (CKD-EPI)NonAf 51 (>60 ml/min/1.73 sqM) Glucose 104 H (74-99) mg/dL Calcium 8.8 (8.4-10.2) mg/dL Total Bilirubin 1.1 (0.2-1.3) mg/dL AST 46 H (14-36) U/L ALT 27 (4-34) U/L Alkaline Phosphatase 79 (38-126) U/L Total Protein 6.9 (6.3-8.2) g/dL Albumin 4.2 (3.5-5.0) g/dL Critical Care Time Critical Care Time: Yes Total Critical Care Time: 35 Disposition Clinical Impression: Fall, Intracranial hemorrhage, Pubic ramus fracture Disposition: OTHER INSTITUTION NOT DEFINED Condition: Serious Is patient prescribed a controlled substance at d/c from ED?: No Referrals: Fili Irwin DO [Primary Care Provider] - 1-2 days Time of Disposition: 20:02 - Out of Hospital Transfer - Req. Specs Out of Hospital Transfer - Requested Specifics: Other Emergency Center (Transfer to [facility])
[2024-03-24 18:46] VITALS: TEMP 97.9
[2024-03-24 18:58] LABS: Basophils % (A) 0 %; Eosinophils # (A) 0.2 k/uL (0-0.7); Eosinophils % (A) 2 %; HCT 41.1 % (34.0-46.0); HGB 13.7 gm/dL (11.4-16.0); Lymphocytes # (A) 1.1 k/uL (1.0-4.8); Lymphocytes % (A) 9 %; MCHC 33.3 g/dL (31.0-37.0); Mean Platelet Volume 7.6; Monocytes # (A) 0.5 k/uL (0-1.0); Monocytes % (A) 4 %; Neutrophils # (A) 9.9 k/uL (1.3-7.7); Neutrophils % (A) 84 %; Platelet Count 234 k/uL (150-450); RBC 4.56 m/uL (3.80-5.40); RDW 13.1 % (11.5-15.5); WBC 11.8 k/uL (3.8-10.6)
[2024-03-24 19:07] LABS: ALT 27 U/L (4-34); African American GFR (CKD) 59 (>60 ml/min/1.73 sqM); Anion Gap 5 mmol/L; Blood Urea Nitrogen 39 mg/dL (7-17); Calcium 8.8 mg/dL (8.4-10.2); Carbon Dioxide 21 mmol/L (22-30); Chloride 108 mmol/L (98-107); Glucose 104 mg/dL (74-99); Non-African American GFR(CKD) 51 (>60 ml/min/1.73 sqM); Sodium 134 mmol/L (137-145); Total Bilirubin 1.1 mg/dL (0.2-1.3)
[2024-03-24 19:15] LABS: AST 46 U/L (14-36); Albumin 4.2 g/dL (3.5-5.0); Alkaline Phosphatase 79 U/L (38-126); Potassium 5.5 mmol/L (3.5-5.1); Total Protein 6.9 g/dL (6.3-8.2)
[2024-03-24 19:27] LABS: INR 3.1 (<1.2); Partial Thromboplastin Time 29.6 sec (22.0-30.0)
[2024-03-24] MEDS: HYDROmorphone 0.5 MG/0.5 ML SYRINGE IVP STA ×2 (19:32→20:57)
[2024-03-24] MEDS ORDERED: Kcentra / Balfaxar PER PHARMACY 1 EACH MISC MISCELLANE PRN (19:47)
--- NOTE | 2024-03-24 19:49 | CT ---
EXAMINATION TYPE: CT brain isaias kelly DATE OF EXAM: 03/24/2024 COMPARISON: 07/17/2021 HISTORY: 88-year-old female pain after Fell onto cement and possibly hit head CT DLP: 1264.9 mGycm Automated exposure control for dose reduction was used. Technique: Examination of the head was done in axial plane without intravenous contrast. Coronal and sagittal reconstructions performed. CT of the cervical spine was obtained in axial plane without intravenous injection of contrast mater ial. Coronal and sagittal reformatted images were obtained from the axial views for evaluation of f ractures, spinal alignment and canal. FINDINGS: Head: There is a right parietal scalp contusion. No underlying calvarial fracture. There is a new 6 mm hyperdense focus within the posterior aspect of the body of the right lateral jannie tricle. New punctate hyperdensity depended at the occipital horn of the right lateral ventricle. 2. Moderate ventriculomegaly. Confluent white matter hypodensities are also unchanged. No extra-axial fluid collection or parenchymal hematoma is seen. No midline shift or herniation. Leftward nasal septal deviation. There is trace mucosal thickening ethmoid air cells. Mastoid air sharon ls well pneumatized. Orbits and globes are intact. Cervical spine: Advanced degenerative change bilateral TMJs. No craniocervical junction abnormality, predental space widening, or prevertebral soft tissue swellin g. Prominent degenerative change C1 dens articulation. Severe disc/endplate degenerative change throughout the cervical spine as well as moderate to advance d facet and uncovertebral joint arthropathy throughout. Degenerative trace grade 1 anterolisthesis C2-C3. Trace grade 1 retrolisthesis C5-C6 and C6-C7. Grade 1, nearly grade 2 anterolisthesis C7-T1. Grade 1 anterolisthesis T2-T3. Disc osteophyte complexes contribute to mild spinal canal stenoses at multiple levels. No acute fracture seen of the cervical spine Variable mild to moderate neuroforaminal stenoses throughout. Sagittal and coronal reformatted images confirm above findings. COMBINED IMPRESSION: 1. Right parietal scalp contusion. No calvarial fracture. 2. New 6 mm hyperdense focus posterior body right lateral ventricle suggestive of a small focus of ac ambler intraventricular hemorrhage. Trace layering intraventricular blood also noted at the occipital ho rn of the right lateral ventricle. No mass effect, midline shift, or herniation. 3. Similar [id number] ventriculomegaly. Correlate to exclude a component of NPH. Similar modera te burden of chronic small vessel ischemic disease. Critical findings called to Dr. Chand in the ER at 7:47 PM. 4. Moderate to advanced multilevel spondylotic change. Degenerative grade 1 spondylolistheses as outl ined above. Nearly grade 2 anterolisthesis at C7-T1 also likely on a degenerative basis. 5. No acute fracture seen of the cervical spine. [facility], , 03/24/2024 7:47 PM
[2024-03-24] MEDS ORDERED: levETIRAcetam IV 1,500 MG in SODIUM CHLORIDE 0.9% 250 ML IVPB ONE (20:03)
[2024-03-24] MEDS: SODIUM CHLORIDE 0.9% 1,000 ML IV SCH (20:13)
[2024-03-24] MEDS: HUMAN PROTHROMBN CMPL BALFAXAR IV ONE (20:14)
[2024-03-24] MEDS: PHYTONADIONE 10 MG in SODIUM CHLORIDE 0.9% 50 ML IVPB STA (20:16)
--- NOTE | 2024-03-24 20:17 | XR ---
EXAMINATION TYPE: XR chest 1V portable, XR pelvis AP view DATE OF EXAM: 03/24/2024 Comparison: 07/17/2021 Clinical History: 88-year-old female pain after fall Findings: Chest: Heart normal size. Mild hyperinflation. Atherosclerotic arch calcifications. No consolidation or pleu ral effusion. Levoconvex curvature thoracic spine. Pelvis: Minimally displaced, mildly comminuted fractures right superior and inferior pubic rami. Hips otherwi se appear intact. SI joints and pubic symphysis appear intact. Impression: 1. Chest: COPD. No acute process seen. 2. Pelvis: Minimally displaced, mildly comminuted fractures of the right superior and inferior pubic rami. [facility], , 03/24/2024 8:15 PM
[2024-03-24] MEDS: levETIRAcetam IV 500 MG/5 ML VIAL IVP ONE (20:47)
[2024-03-24] MEDS: TRANEXAMIC 1,000 MG/100ML-NACL 1,000 MG in SALINE 1 100ML.BAG IV STA (20:50)
[2024-03-24 21:04] VITALS: PULSE 74; RESP 18
[2024-03-24 21:08] VITALS: BP 116/75
== END 2024-03-24 21:00 | disposition other institution (70) ==
LOC: EC 18:27
DX: S32.511A Fracture of superior rim of right pubis, initial encounter for closed fracture (principal); S06.300A Unspecified focal traumatic brain injury without loss of consciousness, initial encounter; R40.2362 Coma scale, best motor response, obeys commands, at arrival to emergency department; R40.2142 Coma scale, eyes open, spontaneous, at arrival to emergency department; R40.2252 Coma scale, best verbal response, oriented, at arrival to emergency department; R20.0 Anesthesia of skin; Z79.01 Long term (current) use of anticoagulants; Z86.718 Personal history of other venous thrombosis and embolism; W01.0XXA Fall on same level from slipping, tripping and stumbling without subsequent striking against object, initial encounter; Y92.009 Unspecified place in unspecified non-institutional (private) residence as the place of occurrence of the external cause
CPT/HCPCS: 36415; 93005; 80053; 85025; 85610; 85730; 72170; 71045; 72125; 70450; 99291; 96365; 96375 ×4; 96376; J3430; J1953; J1171; J7165

== ENCOUNTER 2024-04-30 11:23 | Emergency (ER) | payer MEDICARE ==
--- NOTE | 2024-04-30 11:36 | ED ---
General Adult HPI - General Stated complaint: FALL Time Seen by Provider: 04/30/24 11:23 Source: patient, RN notes reviewed, old records reviewed - History of Present Illness Initial comments: This is an 88-year-old female who presents to the emergency department after having fallen at the [place] [facility]. Patient has a hematoma to the back of her skull in the occipital region on the right. Patient is on Coumadin. Patient recently had a fall with a brain bleed and was sent down to [facility]. Patient is normally alert and oriented x 1 so history from her is difficult and family is not yet here. - Related Data Home Medications Medication Instructions Recorded Confirmed Warfarin [Coumadin] 5 mg PO SUTUTHSA 07/17/21 03/24/24 Tobramycin/Dexamethasone [Tobradex 1 drop RIGHT EYE TID 03/24/24 03/24/24 Ophth Susp] Warfarin Sodium 6 mg PO MOWEFR 03/24/24 03/24/24 amLODIPine [Norvasc] 5 mg PO DAILY 03/24/24 03/24/24 Allergies Allergy/AdvReac Type Severity Reaction Status Date / Time No Known Allergies Allergy Verified 04/30/24 11:34 Review of Systems ROS Statement: Those systems with pertinent positive or pertinent negative responses have been documented in the HPI. ROS Other: All systems not noted in ROS Statement are negative. Past Medical History Past Medical History: Deep Vein Thrombosis (DVT) History of Any Multi-Drug Resistant Organisms: None Reported Past Surgical History: Hysterectomy, Orthopedic Surgery Past Psychological History: No Psychological Hx Reported Smoking Status: Never smoker Past Alcohol Use History: Occasional Past Drug Use History: None Reported General Exam - General Exam Comments Initial Comments: GENERAL: Patient is well-developed and well-nourished. Patient is nontoxic and well- hydrated and is in mild distress. ENT: Neck is soft and supple. No significant lymphadenopathy is noted. Oropharynx is clear. Moist mucous membranes. Neck has full range of motion without eliciting any pain. EYES: The sclera were anicteric and conjunctiva were pink and moist. Extraocular movements were intact and pupils were equal round and reactive to light. Eyelids were unremarkable. PULMONARY: Unlabored respirations. Good breath sounds bilaterally. No audible rales rhon chi or wheezing was noted. CARDIOVASCULAR: There is a regular rate and rhythm without any murmurs gallops or rubs. ABDOMEN: Soft and nontender with normal bowel sounds. SKIN: There is a scalp hematoma on the right occipital region NEUROLOGIC: Patient is alert and oriented x 1. Cranial nerves II through XII are grossly intact. Motor and sensory are also intact. Normal speech, volume and content. Symmetrical smile. MUSCULOSKELETAL: Normal extremities with adequate strength and full range of motion. LYMPHATICS: No significant lymphadenopathy is noted PSYCHIATRIC: Normal psychiatric evaluation. Course Vital Signs 04/30/24 11:31 Temperature 97.9 F Pulse Rate 97 Respiratory 18 Rate Blood Pressure 131/65 O2 Sat by Pulse 97 Oximetry Medical Decision Making - Medical Decision Making Was pt. sent in by a medical professional or institution (, PA, SERVICES ENGINEER, urgent c are, hospital, or [place] [facility]...) When possible be specific @ -No Did you speak to anyone other than the patient for history (EMS, parent, family, police, friend...)? What history was obtained from this source @ -No Did you review nursing and triage notes (agree or disagree)? Why? @ -I reviewed and agree with nursing and triage notes Were old charts reviewed (outside hosp., previous admission, EMS record, old EKG, old radiological studies, urgent care reports/EKG's, [facility] records)? Report findings @ -No old charts were reviewed Differential Diagnosis? @ -Intracerebral hemorrhage, cervical spine fracture, skull fracture, this is not an all-inclusive list EKG interpreted by me (3pts min.). @ -As above X-rays interpreted by me (1pt min.). @ -None done CT interpreted by me (1pt min.). @ -CT of the C-spine shows no acute normality. CT of the brain shows no acute abnormality U/S interpreted by me (1pt. min.). @ -None done What testing was considered but not performed or refused? (CT, X-rays, U/S, labs)? Why? @ -None What meds were considered but not given or refused? Why? @ -None Did you discuss the management of the patient with other professionals (professionals i.e. TWIN Gonzalez, SERVICES ENGINEER, lab, RT, psych nurse, social service assistant, draw machine operator, teacher, debt recovery officer, case checker)? Give summary @ -No Was smoking cessation discussed for >3mins.? @ -No Was critical care preformed (if so, how long)? @ -No Were there social determinants of health that impacted care today? How? (Homelessness, low income, unemployed, alcoholism, drug addiction, transportation, low edu. Level, literacy, decrease access to med. care, penitentiary, rehab)? @ -No Was there de-escalation of care discussed even if they declined (Discuss DNR or withdrawal of care, Hospice)? DNR status @ -No What co-morbidities impacted this encounter? (DM, HTN, Smoking, COPD, CAD, Cancer, CVA, ARF, Chemo, Hep., AIDS, mental health diagnosis, sleep apnea, morbid obesity)? @ -None Was patient admitted / discharged? Hospital course, mention meds given and route, prescriptions, significant lab abnormalities, going to OR and other p ertinent info. @ -Patient CT of the brain and C-spine were normal. I went back and reexamined the patient she had no complaints and she was eating and acting at her baseline according to family Undiagnosed new problem with uncertain prognosis? @ -No Drug Therapy requiring intensive monitoring for toxicity (Heparin, Nitro, Insulin, Cardizem)? @ -No Were any procedures done? @ -No Diagnosis/symptom? @ -Scalp hematoma Acute, or Chronic, or Acute on Chronic? @ -Acute Uncomplicated (without systemic symptoms) or Complicated (systemic symptoms)? @ -Complicated Side effects of treatment? @ -No Exacerbation, Progression, or Severe Exacerbation? @ -No Poses a threat to life or bodily function? How? (Chest pain, [place], [place], pneumonia, PE, COPD, DKA, ARF, appy, cholecystitis, CVA, Diverticulitis, Homicidal, Suicidal, threat to staff... and all critical care pts) @ -No Diagnosis/symptom? @ -Fall Acute, or Chronic, or Acute on Chronic? @ -Acute Uncomplicated (without systemic symptoms) or Complicated (systemic symptoms)? @ -Complicated Side effects of treatment? @ -None Exacerbation, Progression, or Severe Exacerbation] @ -No Poses a threat to life or bodily function? @ -No Diagnosis/symptom? @ -Head injury Acute, or Chronic, or Acute on Chronic? @ -Acute Uncomplicated (without systemic symptoms) or Complicated (systemic symptoms)? @ -Complicated Side effects of treatment? @ -None Exacerbation, Progression, or Severe Exacerbation] @ -No Poses a threat to life or bodily function? @ -No - Lab Data Result diagrams: 04/30/24 11:45 04/30/24 11:45 Lab Results 04/30/24 04/30/24 Range/Units 11:45 11:45 WBC 6.0 (3.8-10.6) k/uL RBC 4.11 (3.80-5.40) m/uL Hgb 12.4 (11.4-16.0) gm/dL Hct 36.8 (34.0-46.0) % MCV 89.6 (80.0-100.0) fL MCH 30.1 (25.0-35.0) pg MCHC 33.6 (31.0-37.0) g/dL RDW 13.7 (11.5-15.5) % Plt Count 246 (150-450) k/uL MPV 6.9 Neutrophils % 70 % Lymphocytes % 19 % Monocytes % 7 % Eosinophils % 2 % Basophils % 0 % Neutrophils # 4.2 (1.3-7.7) k/uL Lymphocytes # 1.1 (1.0-4.8) k/uL Monocytes # 0.4 (0-1.0) k/uL Eosinophils # 0.1 (0-0.7) k/uL Basophils # 0.0 (0-0.2) k/uL Sodium 137 (137-145) mmol/L Potassium 3.7 (3.5-5.1) mmol/L Chloride 110 H (98-107) mmol/L Carbon Dioxide 21 L (22-30) mmol/L Anion Gap 6 mmol/L BUN 25 H (7-17) mg/dL Creatinine 0.88 (0.52-1.04) mg/dL Est GFR (CKD-EPI)AfAm 68 (>60 ml/min/1.73 sqM) Est GFR (CKD-EPI)NonAf 59 (>60 ml/min/1.73 sqM) Glucose 101 H (74-99) mg/dL Calcium 9.0 (8.4-10.2) mg/dL Total Bilirubin 0.5 (0.2-1.3) mg/dL AST 21 (14-36) U/L ALT 17 (4-34) U/L Alkaline Phosphatase 162 H (38-126) U/L Total Protein 5.8 L (6.3-8.2) g/dL Albumin 3.4 L (3.5-5.0) g/dL Disposition Clinical Impression: Fall, Scalp hematoma, Head injury Disposition: HOME SELF-CARE Condition: Good Instructions (If sedation given, give patient instructions): Fall Prevention for Older Adults (ED) Is patient prescribed a controlled substance at d/c from ED?: No Referrals: Fili Irwin DO [Primary Care Provider] - 1-2 days Time of Disposition: 13:20
--- NOTE | 2024-04-30 11:54 | CT ---
EXAMINATION TYPE: CT brain cspine wo con CT DLP: 1292.8 mGycm, Automated exposure control for dose reduction was used. DATE OF EXAM: 04/30/2024 11:46 AM COMPARISON: CT brain C-spine 03/24/2024. CLINICAL INDICATION:Female, 88 years old with history of Trauma; fall on thinners. code coag. Pain. TECHNIQUE: Brain: Multiple axial CT images of the brain were obtained without IV contrast. Cspine: Axial CT images from the skull base to the inferior aspect of T2 we obtained without intraven ous contrast. Coronal and sagittal reformatted images were also reviewed. FINDINGS: Brain: Motion degraded exam. Extra-axial spaces: No abnormal extra-axial fluid collections. Ventricular system: Similar mild to moderate ventriculomegaly. Resolution of previously demonstrated intra-articular hemorrhage and right posterior body lateral ventricle hyperdense focus. Cerebral parenchyma: Cerebral atrophy. No acute intraparenchymal hemorrhage or mass effect. The tal[place] -white junction is well differentiated. Scattered hypoattenuating areas are seen within the periventr icular and subcortical white matter. Cerebellum: Unremarkable. Mass effect: No evidence of midline shift. Intracranial vasculature: Atherosclerotic calcifications of the intracranial vessels. Soft tissues: Normal. Calvarium/osseous structures: No depressed skull fracture. Paranasal sinuses and mastoid air cells: Clear. Postsurgical changes of the medial wall of the bilate ral maxillary sinuses and ethmoid sinuses. Visualized orbits: Orbital contents are intact. Cervical spine: Fracture: None. Osseous structures: Multilevel degenerative disc disease changes with endplate spurring and disc oste ophyte complex's. Degenerative changes of the bilateral mandibular condyles. Vertebral alignment: Degenerative trace grade 1 anterolisthesis C2-C3. Trace grade 1 retrolisthesis C 5-C6 and C6-C7. Grade 1, nearly grade 2 anterolisthesis C7-T1. Grade 1 anterolisthesis T2-T3. Spinal canal/Neural Foramina: Disc osteophyte complexes contribute to mild spinal canal stenosis at m ultiple levels. Fusion of the left sided C2-C3 and C4-C5 facet joints. Facet joint uncovertebral join t arthropathy scattered throughout the cervical spine with varying degrees of neural foraminal stenos is. Neck soft tissues: Prevertebral soft tissues are within normal limits. Other: The airway is patent. The lung apices are clear. IMPRESSION: 1. No acute intracranial process. Resolution of previously demonstrated intraventricular hemorrhage. 2. Nonspecific moderate white matter changes, likely secondary to chronic small vessel ischemic dise ase. 3. Similar mild to moderate ventriculomegaly. Correlate to exclude a component of NPH. 4. No evidence of cervical spine fracture. 5. Moderate multilevel degenerative disc disease. 6. Degenerative grade 1 spondylolistheses as outlined above. Nearly grade 2 anterolisthesis at C7-T1 which is also likely degenerative. [facility], , 04/30/2024 11:52 AM
[2024-04-30 11:55] LABS: Basophils % (A) 0 %; Eosinophils # (A) 0.1 k/uL (0-0.7); Eosinophils % (A) 2 %; HCT 36.8 % (34.0-46.0); HGB 12.4 gm/dL (11.4-16.0); Lymphocytes # (A) 1.1 k/uL (1.0-4.8); Lymphocytes % (A) 19 %; MCH 30.1 pg (25.0-35.0); MCHC 33.6 g/dL (31.0-37.0); MCV 89.6 fL (80.0-100.0); Mean Platelet Volume 6.9; Monocytes # (A) 0.4 k/uL (0-1.0); Monocytes % (A) 7 %; Neutrophils # (A) 4.2 k/uL (1.3-7.7); Neutrophils % (A) 70 %; Platelet Count 246 k/uL (150-450); RBC 4.11 m/uL (3.80-5.40); RDW 13.7 % (11.5-15.5)
[2024-04-30 12:23] LABS: ALT 17 U/L (4-34); AST 21 U/L (14-36); African American GFR (CKD) 68 (>60 ml/min/1.73 sqM); Albumin 3.4 g/dL (3.5-5.0); Alkaline Phosphatase 162 U/L (38-126); Anion Gap 6 mmol/L; Blood Urea Nitrogen 25 mg/dL (7-17); Carbon Dioxide 21 mmol/L (22-30); Chloride 110 mmol/L (98-107); Glucose 101 mg/dL (74-99); Non-African American GFR(CKD) 59 (>60 ml/min/1.73 sqM); Potassium 3.7 mmol/L (3.5-5.1); Sodium 137 mmol/L (137-145); Total Bilirubin 0.5 mg/dL (0.2-1.3); Total Protein 5.8 g/dL (6.3-8.2)
[2024-04-30 13:37] VITALS: BP 128/98; PULSE 73; RESP 16; TEMP 97.7
== END 2024-04-30 13:47 | disposition home or self-care (01) ==
LOC: EC 11:23
DX: S00.03XA Contusion of scalp, initial encounter (principal); W19.XXXA Unspecified fall, initial encounter
CPT/HCPCS: 36415; 70450; 72125; 80053; 85025; 99284